=== PATIENT | male | born 1985 | race Hispanic/Latino ===

== ENCOUNTER 2019-12-31 13:14 | Emergency (ER) | payer SELFPAY ==
[~2019-12-31] VITALS: Ht 162.6 cm; Wt 72.7 kg
[~2019-12-31 13:14] MED LIST: AMOXICILLIN500 MG OR; NO MEDS; ORAPRED15 MG/5 ML OR; ZITHROMAX200 MG/5 M OR
[2019-12-31] MEDS ORDERED: CEPHALEXIN500 M1 PO (13:28)
[2019-12-31 15:13] VITALS: BP 129/71
== END 2019-12-31 15:31 | disposition home or self-care (01) | DRG 581 ==
LOC: ED 13:14
PROC: 0JQH0ZZ Repair Left Lower Arm Subcutaneous Tissue and Fascia, Open Approach (ICD-10-PCS; principal; 2019-12-31)
DX: S51.812A Laceration without foreign body of left forearm, initial encounter (principal); S56.922A Laceration of unspecified muscles, fascia and tendons at forearm level, left arm, initial encounter; F17.200 Nicotine dependence, unspecified, uncomplicated; W29.3XXA Contact with powered garden and outdoor hand tools and machinery, initial encounter; Y93.H2 Activity, gardening and landscaping

== ENCOUNTER 2020-01-03 09:01 | Emergency (ER) | payer SELFPAY ==
[~2020-01-03] VITALS: Ht 162.6 cm; Wt 80.0 kg
[~2020-01-03 09:01] MED LIST changes: +CEPHALEXIN500 M1 PO
[2020-01-03 09:30] VITALS: BP 112/68
== END 2020-01-03 09:30 | disposition home or self-care (01) | DRG 950 ==
LOC: ED 09:01
DX: S51.812D Laceration without foreign body of left forearm, subsequent encounter (principal); W29.3XXD Contact with powered garden and outdoor hand tools and machinery, subsequent encounter; F17.200 Nicotine dependence, unspecified, uncomplicated